=== PATIENT | female | born 1995 | race African-American/Black ===

== ENCOUNTER 2017-02-18 18:29 | Emergency (ER) | payer SELFPAY ==
[~2017-02-18] VITALS: Ht 165.1 cm; Wt 51.0 kg
[~2017-02-18 18:29] MED LIST: AMOXICILLIN500 MG PO; CIPROFLOXACN500 MG PO
[2017-02-18 19:46] LABS: URINE BILIRUBIN - DIPSTICK NEGATIVE (NEGATIVE); URINE BLOOD DIPSTICK TRACE-INTACT (NEGATIVE); URINE COLOR YELLOW; URINE GLUCOSE - DIPSTICK NEGATIVE (NEGATIVE); URINE KETONE NEGATIVE (NEGATIVE); URINE PH 6.5 (4.5-8.0); URINE PROTEIN - DIPSTICK NEGATIVE (NEG-TRACE); URINE SPECIFIC GRAVITY 1.015; URINE UROBILINOGEN - DIPSTICK 0.2 E.U./dL (0.2)
[2017-02-18 19:55] LABS: URINE CLARITY CLOUDY; URINE LEUK ESTERASE SMALL (NEGATIVE); URINE NITRITE - DIPSTICK POSITIVE (Negative)
[2017-02-18 20:14] LABS: URINE BACTERIA MANY hpf; URINE SQUAMOUS EPITHELIAL CELL FEW EPI/hpf (0-FEW); URINE WBC 50-100 WBC/hpf (0-5)
[2017-02-18] MEDS ORDERED: CIPROFLOXACN500 MG PO (20:27)
[2017-02-18] MEDS ORDERED: PYRIDIUM200 MG PO (20:27)
[2017-02-18 20:38] VITALS: BP 116/82
== END 2017-02-18 20:40 | disposition home or self-care (01) | DRG 690 ==
LOC: ED 18:29
PROVIDERS: Emergency Medicine
DX: N39.0 Urinary tract infection, site not specified (principal)

== ENCOUNTER 2018-04-06 11:04 | Emergency (ER) | payer SELFPAY ==
[~2018-04-06] VITALS: Ht 165.1 cm; Wt 52.3 kg
[~2018-04-06 11:04] MED LIST changes: +PYRIDIUM200 MG PO
[2018-04-06 11:36] LABS: URINE BILIRUBIN - DIPSTICK NEGATIVE (NEGATIVE); URINE BLOOD DIPSTICK SMALL (NEGATIVE); URINE COLOR YELLOW; URINE GLUCOSE - DIPSTICK NEGATIVE (NEGATIVE); URINE KETONE NEGATIVE (NEGATIVE); URINE NITRITE - DIPSTICK NEGATIVE (Negative); URINE PROTEIN - DIPSTICK 100 mg/dL (NEG-TRACE); URINE SPECIFIC GRAVITY 1.025
[2018-04-06 11:38] LABS: URINE CLARITY SL CLOUDY; URINE LEUK ESTERASE SMALL (NEGATIVE)
[2018-04-06 11:40] VITALS: BP 101/53
[2018-04-06 11:44] LABS: URINE BACTERIA MANY hpf; URINE RBC 0-2 RBC/hpf (0-5)
[2018-04-06 11:45] LABS: URINE MUCUS FEW hpf (NONE-FEW); URINE SQUAMOUS EPITHELIAL CELL MODERATE EPI/hpf (0-FEW); URINE WBC 50-100 WBC/hpf (0-5)
[2018-04-06] MEDS ORDERED: KEFLEX500 M1 PO (11:49)
== END 2018-04-06 11:40 | disposition home or self-care (01) | DRG 833 ==
LOC: ED 11:04
DX: O23.40 Unspecified infection of urinary tract in pregnancy, unspecified trimester (principal); Z3A.00 Weeks of gestation of pregnancy not specified; B95.1 Streptococcus, group B, as the cause of diseases classified elsewhere

== ENCOUNTER 2020-09-26 | Emergency (ER) | payer MEDICAID ==
[~2020-09-26] MED LIST changes: +KEFLEX500 M1 PO
[2020-09-26 19:31] LABS: URINE BILIRUBIN - DIPSTICK NEGATIVE (NEGATIVE); URINE BLOOD DIPSTICK TRACE-LYSED (NEGATIVE); URINE COLOR YELLOW; URINE GLUCOSE - DIPSTICK NEGATIVE (NEGATIVE); URINE KETONE 40 mg/dL (NEGATIVE); URINE PH 6.5 (4.5-8.0); URINE PROTEIN - DIPSTICK 30 mg/dL (NEG-TRACE); URINE UROBILINOGEN - DIPSTICK 0.2 E.U./dL (0.2)
[2020-09-26 19:40] LABS: URINE LEUK ESTERASE MODERATE (NEGATIVE); URINE NITRITE - DIPSTICK POSITIVE (Negative); URINE SQUAMOUS EPITHELIAL CELL FEW EPI/hpf (0-FEW); URINE WBC 50-100 WBC/hpf (0-5)
[2020-09-26 19:41] LABS: URINE BACTERIA MANY hpf
[2020-09-26] MEDS ORDERED: PYRIDIUM200 MG PO ×2 (19:49→20:01)
[2020-09-26] MEDS ORDERED: CIPROFLOXACN500 MG PO ×2 (19:49→20:01)
[2020-09-27] MEDS ORDERED: PYRIDIUM200 MG PO (13:31)
[2020-09-27] MEDS ORDERED: CIPROFLOXACN500 MG PO (13:31)
== END 2020-09-26 20:00 | disposition home or self-care (01) ==
PROVIDERS: Family Medicine
DX: N39.0 Urinary tract infection, site not specified (principal); B96.20 Unspecified Escherichia coli [E. coli] as the cause of diseases classified elsewhere

== ENCOUNTER 2021-06-14 12:31 | Emergency (ER) | payer MEDICAID ==
[~2021-06-14] VITALS: Ht 165.1 cm; Wt 75.0 kg
[2021-06-14 15:22] LABS: URINE BILIRUBIN - DIPSTICK NEGATIVE (NEGATIVE); URINE BLOOD DIPSTICK NEGATIVE (NEGATIVE); URINE COLOR YELLOW; URINE GLUCOSE - DIPSTICK NEGATIVE (NEGATIVE); URINE KETONE TRACE mg/dL (NEGATIVE); URINE LEUK ESTERASE TRACE (NEGATIVE); URINE PROTEIN - DIPSTICK 30 mg/dL (NEG-TRACE); URINE UROBILINOGEN - DIPSTICK 0.2 E.U./dL (0.2)
[2021-06-14 15:23] LABS: URINE NITRITE - DIPSTICK NEGATIVE (Negative)
[2021-06-14 15:52] LABS: URINE RBC 0-2 RBC/hpf (0-5)
[2021-06-14 15:53] LABS: URINE SQUAMOUS EPITHELIAL CELL MANY EPI/hpf (0-FEW)
[2021-06-14] MEDS ORDERED: NITROFURANTN100 M2 PO (16:30)
[2021-06-14 17:15] VITALS: BP 105/64
== END 2021-06-14 17:15 | disposition home or self-care (01) ==
LOC: ED 12:31
PROVIDERS: Family Medicine
DX: N39.0 Urinary tract infection, site not specified (principal); Z20.2 Contact with and (suspected) exposure to infections with a predominantly sexual mode of transmission

== ENCOUNTER 2023-12-03 12:53 | Emergency (ER) | payer SELFPAY ==
[~2023-12-03] VITALS: Ht 165.1 cm; Wt 150.0 kg
[~2023-12-03 12:53] MED LIST changes: +NITROFURANTN100 M2 PO
[2023-12-03] MEDS ORDERED: ONDANSETRON HCl 4 MG/2 ML SDV IV ONE (13:00)
[2023-12-03 13:39] LABS: BASO% 0.5 % (0-3); EOS% 0.3 % (0-8); IMMATURE GRANULOCYTES 0.2 % (0.0-5.0); LYMPH% 19.1 % (15-41); MEAN CELL VOLUME 93.3 fL CALC (80.0-100.0); MEAN CORPUSCULAR HGB 31.9 pG CALC (26.0-32.0); MEAN CORPUSCULAR HGB CONC 34.2 g/dL CAL (32.0-36.0); MONO% 8.5 % (2-13); NEUT# 4.31 thou/uL (2.00-7.15); NEUT% 71.4 % (42-76); RED BLOOD COUNT 4.51 mill/uL (4.20-5.60)
[2023-12-03 13:41] LABS: HEMATOCRIT 42.1 % (37.0-47.0); HEMOGLOBIN 14.4 g/dl (12.0-16.0)
[2023-12-03] MEDS ORDERED: SODIUM CHLORIDE 0.9% 1,000 ML IV ONE (13:55)
[2023-12-03 13:58] LABS: ALBUMIN 4.5 g/dL (3.2-5.0); BILIRUBIN, TOTAL 0.5 mg/dL (0.02-1.3); CREATININE 0.7 mg/dL (0.5-1.0); POTASSIUM 4.1 mmol/l (3.5-5.1)
[2023-12-03] MEDS ORDERED: [UNRECOGNIZED DRUG - OTHER] PO (14:21)
[2023-12-03] MEDS ORDERED: PROMETHAZINE HY25 M1 PO (14:21)
[2023-12-03 14:29] LABS: URINE BILIRUBIN - DIPSTICK Negative (NEGATIVE); URINE BLOOD DIPSTICK Negative (NEGATIVE); URINE GLUCOSE - DIPSTICK Negative (NEGATIVE); URINE KETONE >=160 mg/dL (NEGATIVE); URINE LEUK ESTERASE Trace (NEGATIVE); URINE PROTEIN - DIPSTICK 30 mg/dL (NEG-TRACE); URINE SPECIFIC GRAVITY 1.025
[2023-12-03 14:30] LABS: URINE COLOR Yellow; URINE NITRITE - DIPSTICK Positive (Negative)
[2023-12-03 14:39] LABS: URINE BACTERIA MODERATE hpf; URINE MUCUS MODERATE hpf (NONE-FEW)
[2023-12-03 14:40] LABS: URINE SQUAMOUS EPITHELIAL CELL MODERATE EPI/hpf (0-FEW)
[2023-12-03] MEDS ORDERED: OMNICEF300 MG PO (14:56)
[2023-12-03 15:33] VITALS: BP 130/76
== END 2023-12-03 15:40 | disposition home or self-care (01) | DRG 832 ==
LOC: ED 12:53
PROVIDERS: Family Medicine
DX: O23.40 Unspecified infection of urinary tract in pregnancy, unspecified trimester (principal); N39.0 Urinary tract infection, site not specified; Z3A.00 Weeks of gestation of pregnancy not specified

== ENCOUNTER 2023-12-22 16:01 | Emergency (ER) | payer MEDICAID ==
[2023-12-22] VITALS (13 sets, daily range): BP systolic 107–148; BP diastolic 58–91
[~2023-12-22] VITALS: Ht 165.1 cm; Wt 72.0 kg
[~2023-12-22 16:01] MED LIST changes: +OMNICEF300 MG PO; +PROMETHAZINE HY25 M1 PO; +[UNRECOGNIZED DRUG - OTHER] PO
[2023-12-22] MEDS ORDERED: SODIUM CHLORIDE 0.9% 1,000 ML IV ONE (16:45)
[2023-12-22 16:47] LABS: BASO% 0.3 % (0-3); EOS% 0.3 % (0-8); HEMATOCRIT 37.2 % (37.0-47.0); HEMOGLOBIN 13.3 g/dl (12.0-16.0); IMMATURE GRANULOCYTES 0.2 % (0.0-5.0); LYMPH% 20.2 % (15-41); MEAN CELL VOLUME 89.4 fL CALC (80.0-100.0); MEAN CORPUSCULAR HGB CONC 35.8 g/dL CAL (32.0-36.0); MONO% 11.8 % (2-13); NEUT# 3.93 thou/uL (2.00-7.15); NEUT% 67.2 % (42-76); RED BLOOD COUNT 4.16 mill/uL (4.20-5.60); RED CELL DISTRI WIDTH 11.9 % (11.5-15.5)
[2023-12-22] MEDS ORDERED: ONDANSETRON HCl 4 MG/2 ML SDV IV ONE (16:50)
[2023-12-22 17:05] LABS: ALBUMIN 4.6 g/dL (3.2-5.0); BILIRUBIN, TOTAL 0.6 mg/dL (0.02-1.3); CREATININE 0.7 mg/dL (0.5-1.0); POTASSIUM 3.7 mmol/l (3.5-5.1)
[2023-12-22] MEDS ORDERED: LACTATED RINGER'S 1,000 ML IV ONE (18:00)
[2023-12-22 19:14] LABS: URINE BLOOD DIPSTICK Negative (NEGATIVE); URINE GLUCOSE - DIPSTICK Negative (NEGATIVE); URINE KETONE >=160 mg/dL (NEGATIVE); URINE NITRITE - DIPSTICK Negative (Negative); URINE PROTEIN - DIPSTICK 100 mg/dL (NEG-TRACE); URINE SPECIFIC GRAVITY >=1.030
[2023-12-22 19:15] LABS: URINE COLOR Dark yellow; URINE LEUK ESTERASE Small (NEGATIVE)
[2023-12-22 19:18] LABS: URINE SQUAMOUS EPITHELIAL CELL MODERATE EPI/hpf (0-FEW)
[2023-12-22 19:19] LABS: URINE BACTERIA MANY hpf; URINE MUCUS MANY hpf (NONE-FEW)
[2023-12-22] MEDS ORDERED: ZOFRAN4 MG/TAB PO (19:25)
[2023-12-22] MEDS ORDERED: KEFLEX500 MG PO (19:26)
[2023-12-22] MEDS ORDERED: CEPHALEXIN MONOHYDRATE 500 MG/CAP PO ONE (19:45)
[2023-12-22] MEDS ORDERED: METOCLOPRAMIDE HCL 10 MG/2 ML SDV IV ONE (19:45)
== END 2023-12-22 20:20 | disposition home or self-care (01) ==
LOC: ED 16:01
PROVIDERS: Nurse Practitioner
DX: O23.41 Unspecified infection of urinary tract in pregnancy, first trimester (principal); N39.0 Urinary tract infection, site not specified; O21.0 Mild hyperemesis gravidarum; Z3A.08 8 weeks gestation of pregnancy

== ENCOUNTER 2024-08-07 10:45 | Emergency (ER) | payer OTHER ==
[~2024-08-07] VITALS: Ht 165.1 cm; Wt 68.0 kg
[~2024-08-07 10:45] MED LIST changes: +KEFLEX500 MG PO; +ZOFRAN4 MG/TAB PO
[2024-08-07] MEDS ORDERED: NAPROXEN500 MG PO ×2 (14:27→14:35)
[2024-08-07] MEDS ORDERED: PREDNISONE20 MG PO ×2 (14:27→14:35)
[2024-08-07] MEDS ORDERED: METHOCARBAMOL500 MG PO ×2 (14:27→14:35)
[2024-08-07 14:29] VITALS: BP 129/73
== END 2024-08-07 14:38 | disposition home or self-care (01) | DRG 556 ==
LOC: ED 10:45
DX: M25.542 Pain in joints of left hand (principal); M25.541 Pain in joints of right hand; M54.50 Low back pain, unspecified; Z20.822 Contact with and (suspected) exposure to COVID-19